=== PATIENT | female | born 1975 | race Caucasian/White ===

== ENCOUNTER 2023-03-04 08:00 | Oncology outpatient (recurring) (ONCR) | payer OTHER, SELFPAY ==
[2023-03-02 08:20] VITALS: BP 133/64; PULSE 77; RESP 16; TEMP 36.4; O2SAT 99
[2023-03-02] MEDS: sodium chloride 0.9% 250 ML 75 ML IV (08:30)
[2023-03-02] MEDS: iron sucrose 200 MG in sodium chloride 0.9% (100 ml) 100 ML 220 MG IV (08:30)
[2023-03-02 09:15] VITALS: BP 121/70; PULSE 79; RESP 16; TEMP 36.3; O2SAT 97
== END 2023-03-05 23:59 | disposition home or self-care (01) ==
PROVIDERS: PCP Family Medicine; Visit Provider Family Medicine
DX: Z53.9 Procedure and treatment not carried out, unspecified reason (principal)
CPT/HCPCS: 96365; J1756; J7050

== ENCOUNTER 2023-04-02 08:00 | Oncology outpatient (recurring) (ONCR) | payer OTHER, SELFPAY ==
[2023-03-18 09:51] LABS: Basophils % 0.4 %; Eosinophils # 0.1 10^3/uL (0.0-0.8); Eosinophils % 1.5 %; Hematocrit 38.8 % (36-47); Lymphocytes # 2.3 10^3/uL (0.8-4.8); Lymphocytes % 31.4 %; Mean Corpuscular HGB Conc 31.4 g/dL (30-55); Mean Corpuscular Hemoglobin 25.1 pg (27-33); Mean Corpuscular Volume 79.7 fl (85-98); Mean Platelet Volume 8.9 fL (7.4-10.4); Monocytes # 0.5 10^3/uL (0.2-0.9); Monocytes % 6.7 %; Neutrophils # 4.34 10^3/uL (1.8-7.7); Neutrophils % 59.5 %; Nucleated Red Blood Cells % 0 %; Platelet Count 345 10^3/cmm (157-399); Red Blood Count 4.87 10^6/uL (3.85-5.65)
[2023-03-18 09:56] LABS: Reticulocyte % 2.1 % (0.5-2.0)
[2023-03-18 10:28] LABS: Alanine Aminotransferase 14 U/L (0-33); Albumin Level 4.3 g/dL (3.5-5.2); Alkaline Phosphatase 82 U/L (35-105); Anion Gap 11.9 (5-19); Aspartate Amino Transferase 10 U/L (0-32); Blood Urea Nitrogen 7 mg/dL (6-20); Calcium 8.6 mg/dL (8.5-10.5); Carbon Dioxide 27 mmol/L (22-29); Chloride 102 mmol/L (98-107); Ferritin 61 ng/mL (15-150); Globulin 2.4 g/dL (1.3-4.6); Glomerular Filtration Rate 67.4 mL/min (90-130); Glucose 154 mg/dL (65-115); Iron 128 ug/dL (37-145); Lactate Dehydrogenase 161 U/L (135-214); Osmolality Calculated 285 mOsm/kg (285-295); Percent Saturation 46.2 % (20-50); Potassium 3.9 mmol/L (3.5-5.1); Sodium 137 mmol/L (136-145); Total Bilirubin 0.2 mg/dL (0.15-1.2); Total Iron Binding Capacity 277 mcg/dl; Total Protein 6.7 g/dL (6.6-8.7); Unsaturated Iron Binding 149 ug/dL (112-347)
[2023-03-18 10:42] LABS: Vitamin B12 361 pg/mL (232-1245)
[2023-03-18 11:03] LABS: LAB Peripheral Smear Sent for Review
[2023-03-18 11:08] LABS: Folate Level < 20.0 ng/mL (4.8-37.3)
[2023-04-03 20:00] LABS: Hematocrit 40.9 % (35.0-45.0); Hemoglobin 12.5 g/dL (11.7-15.5); Hemoglobinopathy MCH 25.5 pg (27.0-33.0); Hemoglobinopathy MCV 83.3 fL (80.0-100.0); Hemoglobinopathy RDW 20.6 % (11.0-15.0); Red Blood Cell Count 4.91 Million/uL (3.80-5.10)
== END 2023-04-04 23:59 | disposition home or self-care (01) ==
PROVIDERS: Internal Medicine Medical Oncology; PCP Family Medicine; Visit Provider Family Medicine
DX: D50.9 Iron deficiency anemia, unspecified (principal); Z53.9 Procedure and treatment not carried out, unspecified reason
CPT/HCPCS: 36415; 80053; 80503; 82607; 82728; 82746; 83010; 83020; 83540; 83550; 83615; 85014; 85018; 85025; 85041; 85045

== ENCOUNTER 2024-03-26 19:14 | Emergency (ER) | payer OTHER, SELFPAY ==
[2024-03-26 19:21] VITALS: BP 143/81; PULSE 96; RESP 16; TEMP 36.7; O2SAT 99
--- NOTE | 2024-03-26 19:25 | ECG_ITS ---
[facility] [place] [facility] Date: 2024-03-26 Pat Name: Heriberto Haynes Department: Room: Gender: Female Risk Manager: : 1975 Requested By: Enedina Fischer Order Number: [id number] Keli MD: Cristine Bruno M.D. Measurements Intervals [facility] Rate: 92 P: 67 GA: 145 QRS: 44 QRSD: 85 T: 36 QT: 334 QTc: 414 Interpretive Statements SINUS RHYTHM POSSIBLE LEFT ATRIAL ENLARGEMENT [-0.1mV P-WAVE IN V1/V2] No previous ECG available for comparison Electronically Signed On 03-27-2024 19:28:46 CDT by Cristine Bruno M.D. [id number]
--- NOTE | 2024-03-26 19:31 | XRR_ITS ---
PROCEDURE INFORMATION: Exam: XR Chest Exam date and time: 03/26/2024 7:45 PM Age: 49 years old Clinical indication: Chest pressure; Patient HX: Chest pain; Light headed/dizzy TECHNIQUE: Imaging protocol: Radiologic exam of the chest. Views: 1 view. COMPARISON: No relevant prior studies available. FINDINGS: Lungs: Unremarkable. No consolidation. Pleural spaces: Unremarkable. No pleural effusion. No pneumothorax. Heart/Mediastinum: Unremarkable. No cardiomegaly. Bones/joints: Unremarkable. XR/XR chest 1V portable [id number] IMPRESSION: No acute findings.
[2024-03-26 19:53] LABS: Basophils # 0.1 10^3/uL (0.0-0.1); Basophils % 0.7 %; Eosinophils # 0.1 10^3/uL (0.0-0.8); Eosinophils % 0.8 %; Lymphocytes % 22.3 %; Mean Corpuscular HGB Conc 30.6 g/dL (30-55); Mean Corpuscular Hemoglobin 24.1 pg (27-33); Mean Corpuscular Volume 78.8 fl (85-98); Mean Platelet Volume 9.4 fL (7.4-10.4); Monocytes # 0.6 10^3/uL (0.2-0.9); Monocytes % 6.6 %; Neutrophils # 6.16 10^3/uL (1.8-7.7); Neutrophils % 69.4 %; Nucleated Red Blood Cells % 0 %; Platelet Count 392 10^3/cmm (157-399); Red Blood Count 4.57 10^6/uL (3.85-5.65); Red Cell Distribution Width 14.3 % (12.1-15.1); White Blood Count 8.88 10^3/uL (3.29-11.43)
[2024-03-26 20:05] VITALS: BP 121/76; PULSE 78; RESP 17; O2SAT 98
[2024-03-26 20:07] LABS: Troponin(5th) Baseline 7 ng/L (0-10)
[2024-03-26 20:14] LABS: Alanine Aminotransferase 18 U/L (0-33); Albumin Level 4.2 g/dL (3.5-5.2); Alkaline Phosphatase 88 U/L (35-105); Anion Gap 14.1 (5-19); Aspartate Amino Transferase 11 U/L (0-32); Blood Urea Nitrogen 9 mg/dL (6-20); Carbon Dioxide 22 mmol/L (22-29); Chloride 102 mmol/L (98-107); Globulin 2.3 g/dL (1.3-4.6); Glomerular Filtration Rate 59.4 mL/min (90-130); Glucose 182 mg/dL (65-115); Lipase 32 U/L (13-60); Osmolality Calculated 281 mOsm/kg (285-295); Potassium 4.1 mmol/L (3.5-5.1); Sodium 134 mmol/L (136-145); Total Bilirubin 0.2 mg/dL (0.15-1.2); Total Protein 6.5 g/dL (6.6-8.7)
--- NOTE | 2024-03-26 20:35 | W.ED.ARRPALP ---
HPI - Arrhythmia/Palpitations General: Chief Complaint: Arrhythmia/Palpitations Stated Complaint: CP, Lightheaded Time Seen by Provider: 03/26/24 19:47 History of Present Illness: 49-year-old female presents to the emergency department chief complaint of palpitation just prior to arrival patient was concerned her anxiety may be acting up patient did take one of her anxiety medications prior to arrival she does not endorse any known history of cardiac issues she denies any prior history of any obvious chest pain currently patient presents to the ER with family present for further assessment and management. The patient does endorse at 1 point time she was on metoprolol however that has been discontinued last year due to having an issue with bradycardia previously. Associated symptoms: Deny anxiety, nausea or vomiting Related Data Home Medications Medication Instructions Recorded Confirmed alprazolam 0.5 mg tablet 0.5 mg PO DAILY PRN anxiety 03/18/23 04/16/23 cholecalciferol (vitamin D3) 1,250 PO .weekly 03/18/23 04/16/23 mcg (50,000 unit) capsule ferrous sulfate 325 mg (65 mg 325 mg PO DAILY 03/18/23 04/16/23 iron) tablet,delayed release fluoxetine 20 mg capsule 20 mg PO DAILY 03/18/23 04/16/23 levothyroxine 200 mcg capsule 200 mcg PO DAILY 03/18/23 04/16/23 metoprolol tartrate 25 mg tablet 12.5 mg PO DAILY 03/18/23 04/16/23 omeprazole 20 mg capsule,delayed 20 mg PO DAILY 03/18/23 04/16/23 release Allergies Allergy/AdvReac Type Severity Reaction Status Date / Time mold Allergy Severe ALGY-Wheezi Verified 03/26/24 19:26 ng ragweed pollen Allergy Intermediate congestion Verified 03/26/24 19:26 house dust mite Allergy Mild ALGY-Sneezi Verified 03/26/24 19:26 ng oak Allergy Mild ALGY-Watery Verified 03/26/24 19:26 Eye Review of Systems General: Reports: 10 or more systems reviewed and unremarkable except in HPI and below Const: Denies: fever(s), chills, fatigue or malaise Eyes: Denies: change in vision or blurry vision Card: Reports: chest pain and palpitations Resp: Denies: dyspnea or productive cough GI: Denies: abdominal pain, nausea or vomiting : Denies: flank pain Musc: Denies: extremity pain or extremity swelling Skin/Breast: Denies: rash or pruritus Neuro: Denies: headache(s) Psych: Denies: anxiety or depression Orlin/Lymph: Denies: easy bleeding All/Imm: Denies: urticaria, throat swelling or facial swelling PFSH ED PFSH: Family History Grandfather CAD (coronary artery disease) Dementia Diabetes paternal Family/Other Cancer cousin Father Cancer Chronic kidney disease (CKD) Diabetes Hyperlipidemia Hypertension Family/Other Cancer uncle Grandmother Cancer maternal Chronic kidney disease (CKD) Family/Other Cancer aunt from leukemia Mother Diabetes Hyperlipidemia Sister Diabetes Grandfather Diabetes Lung disease maternal Denies family history of Clotting disorder Psychiatric illness Suicide Anesthesia complication Bleeding disorder Family history of premature coronary artery disease Stroke Social History Smoking and tobacco/nicotine status: former use of tobacco/nicotine Quit status (tobacco/nicotine): has quit using Year quit tobacco: February 22 Former quit date comment: 30+ Years Female Reproductive History: Date of last menstrual period: 03/12/24 Physical Exam Const: COMMON NORMALS: no acute distress, patient oriented x3 and healthy appearing OTHER: Patient appears somewhat anxious on exam however appears in no obvious acute distress HENMT: COMMON NORMALS: normocephalic and atraumatic HEAD & SCALP: normocephalic and atraumatic Eye: COMMON NORMALS: Equal, round and reactive pupils present and EOMs intact bilaterally PUPIL: Yes Equal, round and reactive pupils present Neck/C-Spine: COMMON NORMALS: full ROM, supple and no JVD Lymph: LYMPHATIC: no lymphadenopathy noted Chest: COMMONS NORMALS: normal inspection of the chest and normal palpation of entire chest wall Resp: COMMON NORMALS: normal respiratory effort, No retractions and clear to auscultation bilaterally EFFORT & INSPECTION: Yes able to speak in complete sentences and Yes symmetric chest movement AUSCULTATION: clear to auscultation bilaterally Cardio: COMMON NORMALS: no JVD, regular rate and regular rhythm RATE: regular rate RHYTHM: regular rhythm GI: COMMON NORMALS: Normal to inspection, nondistended, normoactive bowel sounds present, Soft to palpation and non-tender INSPECTION: Yes normal to inspection PALPATION: Yes Soft to palpation : COMMON NORMALS: Yes no CVA tenderness BLADDER/KIDNEY EXAM: Yes no CVA tenderness Back/Pelvis: COMMON NORMALS: no CVA tenderness Extremity: COMMON NORMALS: normal to inspection and full ROM Neuro: COMMON NORMALS: patient oriented x3, CN's II-XII intact bilaterally, moves all extremities and no focal motor deficits Psych: COMMON NORMALS: mental status grossly normal, Normal thought process present, cooperative and normal affect THOUGHT PROCESS: Normal thought process present Skin: COMMON NORMALS: no rashes or lesions noted GENERAL SKIN EXAM: no rashes or lesions noted Course Vital Signs: Vital signs: Vital Signs Temperature 98.0 F 03/26/24 19:21 Pulse Rate 78 03/26/24 20:05 Respiratory Rate 17 03/26/24 20:05 Blood Pressure 121/76 03/26/24 20:05 Pulse Oximetry 98 03/26/24 20:05 Oxygen Delivery Me thod Room Air 03/26/24 20:05 MDM - Arrhythmia/Palpitations Medical Decision Making Due to patient's symptoms and condition basic cardiac workup will be obtained we will continue to follow EKG this reveals a normal sinus rhythm rate [address] segment elevations or depressions appreciated. Patient's cardiac troponin came back unremarkable as well as BMP this chest discomfort as well as palpitations appear to be anxiety driven due to anxiety attack patient is stable for discharge home advised further follow-up primary care in 3 to 5 days in which to return the interim if any of her symptoms persist or worse. Lab Data 03/26/24 19:44 03/26/24 19:44 Laboratory Results WBC 8.88 10^3/uL (3.29-11.43) 03/26/24 19:44 RBC 4.57 10^6/uL (3.85-5.65) 03/26/24 19:44 Hgb 11.00 g/dL (11.27-16.99) L 03/26/24 19:44 Hct 36.0 % (36-47) 03/26/24 19:44 MCV 78.8 fl (85-98) L 03/26/24 19:44 MCH 24.1 pg (27-33) L 03/26/24 19:44 MCHC 30.6 g/dL (30-55) 03/26/24 19:44 RDW 14.3 % (12.1-15.1) 03/26/24 19:44 Plt Count 392 10^3/cmm (157-399) 03/26/24 19:44 MPV 9.4 fL (7.4-10.4) 03/26/24 19:44 Neut % (Auto) 69.4 % 03/26/24 19:44 Lymph % (Auto) 22.3 % 03/26/24 19:44 [facility] [place] [facility] % (Auto) 6.6 % 03/26/24 19:44 Eos % (Auto) 0.8 % 03/26/24 19:44 Baso % (Auto) 0.7 % 03/26/24 19:44 Neut # (Auto) 6.16 10^3/uL (1.8-7.7) 03/26/24 19:44 Lymph # (Auto) 2.0 10^3/uL (0.8-4.8) 03/26/24 19:44 [facility] # (Auto) 0.6 10^3/uL (0.2-0.9) 03/26/24 19:44 Eos # (Auto) 0.1 10^3/uL (0.0-0.8) 03/26/24 19:44 Baso # (Auto) 0.1 10^3/uL (0.0-0.1) 03/26/24 19:44 Nucleated RBC % (auto) 0 % 03/26/24 19:44 Nucleated RBCs # 0.0 /100WBC 03/26/24 19:44 Sodium 134 mmol/L (136-145) L 03/26/24 19:44 Potassium 4.1 mmol/L (3.5-5.1) 03/26/24 19:44 Chloride 102 mmol/L (98-107) 03/26/24 19:44 Carbon Dioxide 22 mmol/L (22-29) 03/26/24 19:44 Anion Gap 14.1 (5-19) 03/26/24 19:44 BUN 9 mg/dL (6-20) 03/26/24 19:44 Creatinine 1.0 mg/dL (0.5-0.9) H 03/26/24 19:44 GFR Calculation 59.4 mL/min (90-130) L 03/26/24 19:44 Glucose 182 mg/dL (65-115) H 03/26/24 19:44 Calculated Osmolality 281 mOsm/kg (285-295) L 03/26/24 19:44 Calcium 9.0 mg/dL (8.5-10.5) 03/26/24 19:44 Total Bilirubin 0.2 mg/dL (0.15-1.2) 03/26/24 19:44 AST 11 U/L (0-32) 03/26/24 19:44 ALT 18 U/L (0-33) 03/26/24 19:44 Alkaline Phosphatase 88 U/L (35-105) 03/26/24 19:44 Troponin T Baseline 7 ng/L (0-10) 03/26/24 19:44 Total Protein 6.5 g/dL (6.6-8.7) L 03/26/24 19:44 Albumin 4.2 g/dL (3.5-5.2) 03/26/24 19:44 Globulin 2.3 g/dL (1.3-4.6) 03/26/24 19:44 Lipase 32 U/L (13-60) 03/26/24 19:44 All radiology interpretation(s) finalized by discharge Discharge Plan Discharge Patient Disposition: Home Clinical Impression: Palpitations, Anxiety, Atypical chest pain Condition: Stable Prescriptions: No Action fluoxetine 20 mg capsule 20 mg PO DAILY levothyroxine 200 mcg capsule 200 mcg PO DAILY cholecalciferol (vitamin D3) 1,250 mcg (50,000 unit) capsule PO .weekly ferrous sulfate 325 mg (65 mg iron) tablet,delayed release (DR/EC) 325 mg PO DAILY alprazolam 0.5 mg tablet 0.5 mg PO DAILY PRN (Reason: anxiety) omeprazole 20 mg capsule,delayed release(DR/EC) 20 mg PO DAILY metoprolol tartrate 25 mg tablet 12.5 mg PO DAILY Rx Instructions: half a tablet Discharge Orders: Discharge ED (Routine); Ordered 03/26/24 Ordered By: Ziggy Bledsoe Referrals: Herberth Buchanan MD [Primary Care Provider] - 4-7 days Discharge Diet: Advance as tolerated Discharge Activity: Increase activity as tolerated Patient Instructions: Heart Palpitations (ED), Anxiety (ED), Opioid Safety, Pain Management Activity Restrictions/Additional Instructions: Please for follow-up primary care in 3 to 5 days please continue take your anxiety medications as prescribed which please return the interim if any of your symptoms persist or worse 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
[2024-03-26] MEDS: sodium chloride 0.9% 1,000 ML 30 ML IV (21:18)
[2024-03-26 21:33] VITALS: PULSE 70; RESP 13; O2SAT 100
[2024-03-26 21:41] VITALS: BP 136/89; PULSE 75; RESP 15; O2SAT 98
== END 2024-03-26 21:43 | disposition home or self-care (01) ==
PROVIDERS: Emergency Medicine; Emergency Provider Emergency Medicine; PCP Family Medicine
DX: R00.2 Palpitations (principal); F41.9 Anxiety disorder, unspecified; R07.89 Other chest pain; Z87.891 Personal history of nicotine dependence
CPT/HCPCS: 36415; 71045; 80053; 83690; 84484; 85025; 93005; 99285; J7030

== ENCOUNTER 2024-07-23 19:06 | Emergency (ER) | payer OTHER, SELFPAY ==
[2024-07-23 19:11] VITALS: BP 152/88; PULSE 96; RESP 16; TEMP 36.7; O2SAT 99; BMI 33.7
[2024-07-23 19:41] LABS: Basophils # 0.1 10^3/uL (0.0-0.1); Basophils % 0.7 %; Eosinophils # 0.1 10^3/uL (0.0-0.8); Eosinophils % 0.9 %; Hematocrit 34.2 % (36-47); Lymphocytes # 2.1 10^3/uL (0.8-4.8); Lymphocytes % 23.9 %; Mean Corpuscular HGB Conc 28.1 g/dL (30-55); Mean Corpuscular Hemoglobin 20.1 pg (27-33); Mean Corpuscular Volume 71.5 fl (85-98); Monocytes # 0.5 10^3/uL (0.2-0.9); Monocytes % 5.5 %; Neutrophils # 5.87 10^3/uL (1.8-7.7); Neutrophils % 68.4 %; Nucleated Red Blood Cells % 0 %; Platelet Count 473 10^3/cmm (157-399); Red Blood Count 4.78 10^6/uL (3.85-5.65); Red Cell Distribution Width 17.1 % (12.1-15.1); White Blood Count 8.58 10^3/uL (3.29-11.43)
[2024-07-23 19:57] LABS: Alanine Aminotransferase 31 U/L (0-33); Alkaline Phosphatase 115 U/L (35-105); Anion Gap 14.9 (5-19); Aspartate Amino Transferase 18 U/L (0-32); Blood Urea Nitrogen 6 mg/dL (6-20); Calcium 9.1 mg/dL (8.5-10.5); Carbon Dioxide 24 mmol/L (22-29); Chloride 98 mmol/L (98-107); Creatinine Clr Calc Pharmacy 94.0959; Globulin 2.6 g/dL (1.3-4.6); Glomerular Filtration Rate 76.9 mL/min (90-130); Glucose 222 mg/dL (65-115); Lipase 40 U/L (13-60); Osmolality Calculated 280 mOsm/kg (285-295); Potassium 3.9 mmol/L (3.5-5.1); Sodium 133 mmol/L (136-145); Total Bilirubin 0.2 mg/dL (0.15-1.2); Total Protein 6.6 g/dL (6.6-8.7)
== END 2024-07-23 20:13 | disposition left against medical advice (07) ==
LOC: ER 19:12
PROVIDERS: Emergency Medicine; Emergency Provider Family Medicine; PCP Family Medicine
DX: Z53.21 Procedure and treatment not carried out due to patient leaving prior to being seen by health care provider (principal)
CPT/HCPCS: 36415; 80053; 83690; 85025; 99283